=== PATIENT | female | born 1970 | race Hispanic/Latino ===

== ENCOUNTER 2018-12-21 08:40 | Day surgery (SDC) | payer BC ==
[2018-12-21] MEDS ORDERED: Ringers Lactate 1,000 ML IV ONE ×2 (09:17→11:33)
[2018-12-21] MEDS ORDERED: MIDAZOLAM HCL 2 MG/2 ML INJ ONE ×2 (10:29→10:57)
[2018-12-21] MEDS ORDERED: LIDOCAINE 1% W/EPI 1:100,000 MDV 20 ML VIAL ONE (10:37)
[2018-12-21] MEDS ORDERED: LIDOCAINE 2% MPF 5 ML VIAL ONE (10:57)
[2018-12-21] MEDS ORDERED: PROPOFOL 200 MG/20 ML VIAL IV ONE (10:57)
[2018-12-21] MEDS ORDERED: FENTANYL CITR 100 MCG/2 ML ONE (10:57)
[2018-12-21] MEDS ORDERED: CEFAZOLIN SODIUM 1 GM/VIAL ONE (11:00)
[2018-12-21] MEDS ORDERED: NS 0.9% VIAL 20 ML ONE (11:01)
[2018-12-21] MEDS ORDERED: KETOROLAC 30 MG/ML INJ ONE (11:07)
[2018-12-21] MEDS ORDERED: GLYCOPYRROLATE 0.2 MG/ML SYR ONE (11:11)
[2018-12-21 12:06] VITALS: TEMP 97.5
[2018-12-21 13:41] VITALS: BP 118/70; O2SAT 100
--- NOTE | 2018-12-21 22:34 | OP ---
Date of Procedure: 12/21/2018 Surgeon: Veda Gilmore MD Preoperative Diagnosis: Menorrhagia (AUB-L/O). Postoperative Diagnosis: Menorrhagia (AUB-L/O). Procedure Performed: Hysteroscopy, endometrial ablation with NovaSure. Anesthesia: General with LMA. Specimens: No specimens. Complications: No complications. Drains: No drains. Condition: Patient's condition is stable. Findings: Cavity, a small 5 cm, 2.9 cm width. NovaSure settings power of 80 young and ablation cycl e of 81 seconds. The endometrial cavity was globally ablated and there was an excellent burn. It wa s irrigated and revisualized at the end of the case. Patient is a 48-year-old, status post myomectomy 5 years ago. Her bleeding had resolved and has been doing well all this time, but progressively over the past year increasing bleeding. Sampling was do ne and there was no atypia or malignancy. So, a repeat ablation versus hysterectomy were discussed w ith the patient and an IUD as well. Patient preferred to proceed with an ablation and she was consen madyson and brought to the OR. Patient was given 2 g of Ancef, brought back to the OR, placed in a supine fashion on the operating t able. General anesthesia given. Placed in a dorsal lithotomy position. Pelvic exam performed. Christin giuliano mid-position, cervix anterior. Mildly enlarged uterus. No adnexal masses. Prep x3 with Betadin e was done. Speculum was placed to expose the cervix. Anterior lip grasped with 2 Allis clamps. Ex ternal os slightly dilated. A diagnostic SlimLine hysteroscope was used to enter the cervical canal and traversed under direct visualization into the uterine cavity. Cavity was visualized and unremark able. The scope was pulled out. The cervical length was relatively longer. Her sounding length was 10 cm. Cervical length about 5 cm, so the cavity length was set at 5 cm, width at 2.9 cm. After th e ablation, device was opened up and deployed into the uterine cavity in the usual manner. Then, the power setting was for 80 young. The cavity integrity test was done by closing the external os with the occluder. Once this passed, the ablation cycle was started promptly without any delay. There wa s no interruption in the ablation cycle and 81 seconds of the cycle was completed without problems. After the device was un-deployed and removed, a thorough visualization of the uterine cavity was perf ormed with a diagnostic SlimLine hysteroscope again. The ablated material was rinsed out and then ca vity was looked. There was excellent burn from both cornual and on the fundus and the global endomet rial cavity to the top of the internal os. The scope was then removed. Instrument removed. Instrum ent, needle and sponge counts were done and were correct at the end of the case. Patient tolerated t he procedure well. She will follow up with us in 1 month. Pryor 10 tablets given. LESTER/FRANKIE Voice ID: [id number] Report ID: [id number]
== END 2018-12-21 12:40 | disposition home or self-care (01) ==
LOC: OR 08:40
PROVIDERS: ATTEND Obstetrics & Gynecology
PROC: 0U5B8ZZ Destruction of Endometrium, Via Natural or Artificial Opening Endoscopic (ICD-10-PCS; principal; 2018-12-21 10:30)
DX: N92.1 Excessive and frequent menstruation with irregular cycle (principal); N94.6 Dysmenorrhea, unspecified; Z80.3 Family history of malignant neoplasm of breast
CPT/HCPCS: 81025; 58563; J2704; J2250; J3010; J7120 ×2; J0690